=== PATIENT | male | born 1935 | race Caucasian/White ===

== ENCOUNTER → 2016-11-10 | Outpatient (CLI) | payer MEDICARE, BC | END | disposition home or self-care (01) | LOC: LABPAT 10:40 | PROVIDERS: ATTEND Orthopaedic Surgery | DX: Z01.812 Encounter for preprocedural laboratory examination (principal) | CPT/HCPCS: 87070 ==

== ENCOUNTER 2016-11-28 07:23 | Inpatient (IN) | payer MEDICARE, BC ==
[2016-11-21 15:09] VITALS: BMI 28.2
--- NOTE | 2016-11-27 10:05 | HP ---
DATE OF ADMISSION: CHIEF COMPLAINT: Left knee pain. HISTORY OF PRESENT ILLNESS: The patient is a 81-year-old retired male who presents with progressive left knee pain secondary to osteoarthrosis for the past several years. It has worsened recently. He has tried previous injections and medications with only partial temporary relief. He notes the pain does limit his normal function and activities. PAST MEDICAL HISTORY: Significant for diabetes and arthritis. PAST SURGICAL HISTORY: Significant for previous knee arthroscopy. CURRENT MEDICATIONS: None. He denies isabel drug allergies. FAMILY HISTORY: Significant for diabetes and heart disease. SOCIAL HISTORY: Negative for current tobacco or alcohol use. A 16-point review of systems otherwise reviewed and is noncontributory. On examination, the patient is approximately 5 foot 6, 170 pounds of mesomorphic habitus. HEENT exam is nonfocal. Neck is supple. He has painless passive motion of his left hip. Straight leg raise is negative. Active motion left knee -6 to 115 degrees of flexion. He has a large effusion. He is tender about the medial joint line. Collaterals are stable, Kam is negative, Carly's equivocal. He has genu varum alignment. His distal neurovascular exam appears be intact in the left lower extremity. Previous x-rays to include weight-bearing, notch, lateral, and merchant views of the left knee obtained in the office show severe medial and patellofemoral compartment narrowing. IMPRESSION: Left knee severe medial and patellofemoral compartment osteoarthrosis. RECOMMENDATIONS: I talked to the patient at length regarding his treatment options. He is quite symptomatic despite conservative measures. After thorough discussion, he opts to proceed with surgery. We will plan to proceed with left total knee arthroplasty. We will institute DVT prophylaxis postoperatively. Risks and benefits are discussed at length in layman's terms. Patient underwent preoperative medical evaluation by Dr. Velarde.
[~2016-11-28 07:23] MED LIST: ACETAMINOPHEN TAB 500 MG TAB PO ONE; HYDROmorphone 1 MG/ML 1 ML SYRINGE IVP PRN; MELOXICAM 7.5 MG TAB PO ONE; MIDAZOLAM 2 MG/2 ML VIAL IV PRN; ONDANSETRON 4 MG/2 ML VIAL IVP ONE; TRANEXAMIC ACID 1,000 MG in SODIUM CHLORIDE 0.9% 100 ML IVPB ONE; VANCOMYCIN 1,000 MG in SODIUM CHLORIDE 0.9% 250 ML IVPB ONE; ceFAZolin 2 GM in SODIUM CHLORIDE 0.9% 100 ML IVPB ONE
[2016-11-28] MEDS: LACTATED RINGERS 1,000 ML IV SCH (08:07)
[2016-11-28] MEDS ORDERED: LIDOCAINE 1% 20 ML VIAL (10MG/ML) FOR IV START INTRADERMA ONE (08:08)
[2016-11-28 08:15] LABS: Glucose,Whole Blood 119 mg/dL (75-99)
[2016-11-28] MEDS ORDERED: ROPIVACAINE 1,100 MG, SODIUM CHLORIDE 0.9% 330 ML MISCELLANE PRN ×2 (08:24)
[2016-11-28] MEDS ORDERED: MIDAZOLAM 2 MG/2 ML VIAL IVP ONE (09:04)
--- NOTE | 2016-11-28 09:21 | P.ONQ ---
Anesthesiology Proc Note - PNB - Peripheral Nerve Block Performed Left Adductor Canal Infusion Indication: Acute Post-Operative Pain, Dx/Pain Location (Left Knee) Specifically requested for management of pain by : Amaury Sandoval Sedation Type: Sedate with meaningful contact maintained Preparation: Sterile Dressing Position: Supine Catheter: Indwelling Needle Types: Other (see comment) (Pajunk) Needle Size: 100mm (4") Technique: Ultrasound Injectate: 0.5% Ropivacaine (see comment for volume) (30cc) Blood Aspirated: No Pain Paresthesia on Injection Noted: No Resistance on Injection: Normal Events: Uneventful and Well Tolerated
[2016-11-28] MEDS ORDERED: ROPIVACAINE 246.25 MG, EPINEPHrine 0.5 MG, KETOROLAC 30 MG, cloNIDine HCL/PF 80 MCG, WA... MISCELLANE ONE ×5 (09:45)
[2016-11-28] MEDS ORDERED: SODIUM CHLORIDE 0.9% 100 ML BAG ONE (10:36)
[2016-11-28] MEDS ORDERED: ePHEDrine 50 MG/ML 1 ML AMP ONE (10:36)
[2016-11-28] MEDS ORDERED: MIDAZOLAM 2 MG/2 ML VIAL ONE (10:36)
[2016-11-28] MEDS ORDERED: fentaNYL (PF) 50 MCG/ML 2 ML AMP ONE (10:36)
[2016-11-28] MEDS ORDERED: PROPOFOL 10 MG/ML 20 ML VIAL IV ONE (10:36)
[2016-11-28] MEDS ORDERED: TRANEXAMIC ACID 1,000 MG/10 ML VIAL ONE (10:36)
[2016-11-28] MEDS ORDERED: MAGNESIUM HYDROXIDE 2,400 MG/10 ML CUP PO PRN (12:20)
[2016-11-28] MEDS ORDERED: traMADol 50 MG TAB PO PRN (12:20)
[2016-11-28] MEDS ORDERED: NALOXONE 0.4 MG/ML 1 ML VIAL IV PRN (12:20)
[2016-11-28] MEDS ORDERED: ACETAMINOPHEN TAB 325 MG TAB PO PRN (12:20)
[2016-11-28] MEDS ORDERED: ONDANSETRON 4 MG/2 ML VIAL IVP PRN (12:20)
[2016-11-28] MEDS ORDERED: HYDROcodone/APAP 5-325MG 1 EACH TAB PO PRN (12:20)
[2016-11-28] MEDS ORDERED: HYDROmorphone 1 MG/ML 1 ML SYRINGE IVP PRN ×2 (12:20)
--- NOTE | 2016-11-28 12:24 | P.DS ---
Providers Date of admission: 11/28/16 07:23 Expected date of discharge: 11/30/16 Attending physician: Amaury Sandoval Consults: 11/28/16 12:20 Consult Physician Routine Consulting Provider: Justin Velarde Reason/Comments: medical management Do you want consulting provider notified?: Yes Primary care physician: Justin Velarde [facility] Course: Date of admission: 11/28/2016 Date of discharge: 11/30/2016 Admission diagnosis: Status post left total knee arthroplasty Discharge diagnosis: Same Attending physician: Dr. Sandoval Surgical procedures: Left total knee arthroplasty Brief history: Patient is a 81-year-old male with a history of progressive primary left hip osteoarthritis. At this point patient has failed conservative treatment measures and has opted to proceed with a elective left total hip arthroplasty. Hospital course: Details of patient's surgery can be found in operative report. Patient tolerated the procedure well and was subsequently transported to orthopedic floor. Patient's orthopeidc and medical care was provided daily. Patient had daily laboratory tests performed for evaluation of overall blood counts. Patient had daily physical therapy to include strengthening range of motion as well as education with walker ambulation. Patient had daily CPM usage as part of their physical therapy program. Patient was treated with Xarelto] for their postoperative DVT prophylaxis during their inpatient stay. Patient was noted to have a relatively uneventful postoperative course. Patient reported satisfactory pain control with oral pain medications by postoperative day 0. Patient showed satisfactory progress with physical therapy. Patient moved steadily through the program and had no difficulty meeting the goals by postoperative day 2. Given patient's otherwise satisfactory course and having met physical therapy goals, plan is to discharge patient [home] on postoperative day 2. Discharge condition/disposition: Patient will be discharged [home] in stable condition. Discharge medications: Instructions are given on resumption of patient's normal daily medications per primary care recommendation, in addition patient will be prescribed Liberty 5 mg/325 mg, tramadol 50 mg, Colace 100 mg, Pepcid 20 mg, Xarelto 10 mg. Discharge instructions: 1. Wound care and infection precautions, [keep incision dry and covered while showering], no lotions, creams, moisturizers. No soaking, tubs, pools, hottubs. Do not scrub over the incision. 2. Weight-bear [as tolerated] with walker / cane until follow-up. 3. Ice and elevate when necessary. Do not exceed 20 minutes per hour with ice pack. 4. Utilize compression sleeve until seen at first follow up appointment. 5. Visiting nursing care. 6. Home physical therapy [including home CPM]. 7. Pain meds and anticoagulants per prescription. 8. Pain medication has potential to cause constipation. Increase oral fluid and fiber intake. Contact primary care provider if you have not had a bowel movement within 48 hours after discharge 9. No anti-inflammatory medication until discussed at first post operative visit, this including Motrin, Aleve, Mobic, Diclofenac. 10. Follow up in office at 2 weeks postop with Adolph Leroy PA-C 11. Follow up with your primary care doctor 7-10 days after discharge. 12. Contact [facility] with any questions, . Procedures: Left total knee arthroplasty Patient Condition at Discharge: Good Plan - Discharge Summary New Discharge Prescriptions: New Rivaroxaban [Xarelto] 10 mg PO DAILY #12 tab Docusate [Colace] 100 mg PO DAILY #30 capsule Famotidine [Pepcid] 20 mg PO DAILY #30 tablet Hydrocodone/Acetaminophen [Liberty 5-325] 1 - 2 each PO Q6HR PRN #60 tab PRN Reason: Pain traMADol HCl [Ultram] 50 mg PO Q6H PRN #40 tab PRN Reason: Pain No Action metFORMIN HCL [Metformin HCl] 1,000 mg PO QAM metFORMIN HCL [Metformin HCl] 500 mg PO W/SUPPER Discharge Medication List metFORMIN HCL [Metformin HCl] 1,000 mg PO QAM 11/21/16 [History] metFORMIN HCL [Metformin HCl] 500 mg PO W/SUPPER 11/21/16 [History] Rivaroxaban [Xarelto] 10 mg PO DAILY #12 tab 11/28/16 [Rx] Docusate [Colace] 100 mg PO DAILY #30 capsule 11/30/16 [Rx] Famotidine [Pepcid] 20 mg PO DAILY #30 tablet 11/30/16 [Rx] Hydrocodone/Acetaminophen [Liberty 5-325] 1 - 2 each PO Q6HR PRN #60 tab 11/30/16 [Rx] traMADol HCl [Ultram] 50 mg PO Q6H PRN #40 tab 11/30/16 [Rx] Follow up Appointment(s)/Referral(s): [facility], [NON-STAFF] - As Needed David Leroy, PAC [PHYSICIAN INFORMATICA MDM DEVELOPER] - 2 Weeks Activity/Diet/Wound Care/Special Instructions: Orthopedic Discharge Instructions: 1. Wound care and infection precautions, keep incision dry and covered while showering, no lotions, creams, moisturizers. No soaking, pools, hot tubs. Do not scrub over incision. 2. Weight-bear as tolerated with walker / cane until follow-up. 3. Ice and elevate when necessary. Do not exceed 20 minutes per hour with ice pack. 4. Utilize compression sleeve until seen at first follow up appointment. 5. Visiting nursing care. 6. Home physical therapy including home CPM. 7. Pain meds and anticoagulants per prescription. 8. Pain medication has potential to cause constipation. Increase oral fluid and fiber intake. Contact primary care provider if you have not had a bowel movement within 48 hours after discharge. 9. No anti-inflammatory medication until discussed at first post operative visit, this including Motrin, Aleve, Mobic, Diclofenac. 10. Follow up in office at 2 weeks postop with Adolph Leroy PA-C 11. Follow up with your primary care doctor 7-10 days after discharge. 12. Contact [facility] with any questions, . Discharge Disposition: HOME WITH HOME HEALTH SERVICES
[2016-11-28] MEDS ORDERED: LACTATED RINGERS 1,000 ML IV ONE (12:35)
--- NOTE | 2016-11-28 12:58 | P.OP ---
Date of Procedure: 11/28/16 Preoperative Diagnosis: Left knee severe tricompartmental osteoarthrosis-primary Postoperative Diagnosis: Same Procedure(s) Performed: Left total knee arthroplasty/cemented/posterior stabilized Implants: Depuy Attune size 8 cemented femoral component, size 8 cemented tibial component , 9 mm articular surface, 32 mm cemented patellar component. This is a posterior stabilized implant. Anesthesia: regional, local, spinal Surgeon: Amaury Sandoval Oil Distributor Tender #1: David Leroy Estimated Blood Loss (ml): 50 Pathology: other (Bone fragments) Condition: stable Disposition: PACU Indications for Procedure: The patient is a 81-year-old male who presents with progressive left knee pain secondary to osteoarthrosis despite conservative measures. A discussion of the risks and benefits of operative intervention versus continued conservative measures was made with the patient. He opted to proceed with surgery. Operative risks to include infection, neurovascular injury, development of blood clots, possible component loosening, possible component failure need for subsequent procedures was discussed. Informed consent was obtained. Operative Findings: As below Description of Procedure: The patient was brought to the operating room, and after induction of spinal anesthesia the left lower extremity was prepped and draped in normal fashion. The tourniquet was inflated to 270 mmHg. A longitudinal incision extending 3 finger breaths above the superior pole of the patella extending to the medial aspect of the tibial tubercle was then made. The skin and subcutaneous tissues were divided sharply. A medial parapatellar arthrotomy was performed. The medial soft tissues to include the superficial deep portions the medial collateral ligament as well as the medial hamstring tendons were elevated subperiosteally. I also released the posterior medial capsule. The medial proximal tibial and distal femoral osteophytes were carefully removed. The patella was everted. A portion of the retropatellar fat pad was excised sharply. The anterior cruciate ligament had previously ruptured. A starting hole was made in the distal femur 1 cm anterior to the posterior cruciate ligament origin. An intramedullary femoral guide was gently inserted planning on 5 valgus distal cut with 9 mm distal resection. The cutting block was pinned in place. The distal cut was then aid. The posterior referencing sizing guide was utilized. A felt size 8 was most appropriate. 3 of external rotation was built into the system and verified off the trans-epicondylar axis and the posterior condyles. The cutting block was pinned in place. The anterior, posterior, and chamfer cuts were then made. The bone fragments were removed. The notch cut was then made utilizing the guide with the reciprocating saw. The bone fragment was removed. The trial size 8 femoral components placed and was fully seated. There is good anterior to posterior medial to lateral fit. The distal peg holes were drilled. The trial component was then removed. Attention was then paid towards preparing the proximal tibia. An extra medullary guide with 0 posterior slope cutting block was utilized in line with the tibial shaft and second metatarsal distally. I planned on 2 mm resection from the medial compartment. The cutting block was pinned in place. The posterior tissues were protected with a retractor. The proximal tibial cut was made in the bone removed in one fragment. The tibia sized most appropriate size aid. The remnants of the medial and lateral menisci were excised the capsule junction with electrocautery. The trial femoral and tibial components were placed along with a 9 mm articular surface. I was able to obtain full flexion and extension with good stability with varus and valgus stress. After several flexion and extension cycles, the tibial rotation was marked with electrocautery in line with the medial one third of the tibial tubercle. Attention was then paid towards preparing the patella. A patella reamer was utilized taking this down to 14 mm of bone stock. A good flush cut was made. The patella sized most appropriately at 32 mm. The peg holes were drilled. All component was placed per the knee was taken through range of motion. I had good patellofemoral tracking with no hands technique. The trial components were then removed. The posterior osteophytes of the distal femur were carefully removed with a curved osteotome. The tibia was prepared in the appropriate rotation with appropriate drill and keel punch. I made several additional drill holes in the proximal medial tibia to facilitate cement interdigitation. The bony surfaces were prepared with pulsatile lavage and dried. The flexion and extension gaps were checked and felt to be symmetric. The posterior soft tissues were injected with ropivacaine. The tibial component was then cemented in placed and was fully seated. Excess cement was removed. The femoral component cemented in placed and was fully seated. Excess cement was removed. The trial 9 mm articular surface was placed and the knee was put in full extension. The patella component was cemented placed and was fully seated. After the cement had sufficiently hardened, the knee was again taken through range of motion. Again I was able to obtain full flexion and extension with good stability with varus and valgus stress. The trial articular surface was removed and the final 9 mm articular surface was placed. This was fully seated. Care was taken to avoid any soft tissue interposition. Pulsatile lavage was again utilized. The medial parapatellar arthrotomy was closed with #2 Ethibond suture. The tourniquet was deflated with less than 70 minutes total tourniquet time. The subcutaneous tissues were reapproximated with interrupted 2-0 Vicryl sutures. The skin was reprepped with 3-0 subcuticular strata fix suture. Skin tape and adhesive was applied. A sterile dressing was applied. The patient was then awoken from sedation and transferred to recovery room in good condition. Blood loss was estimated at 50 mL. No complications were incurred. Sponge and needle counts were correct at the end the case.
[2016-11-28 13:05] LABS: Glucose,Whole Blood 111 mg/dL (75-99)
--- NOTE | 2016-11-28 13:15 | XR ---
Left knee HISTORY: Status post left knee arthroplasty 2 views of the left knee, no comparisons Patient is status post left knee arthroplasty. There is a drain in place. Suprapatellar increased den sity compatible with joint effusion. Questionable lucency in the medial proximal tibial metaphysis ma y be a postoperative finding, correlate. There is anatomic alignment. Small ossific densities are pre sent medial to the medial malleolus. Ossific densities are also projecting posteriorly to the proxima l tibia and fibula. IMPRESSION: Postop findings. Suspect there may be a spacing device the level of the proximal metaphys is of the left tibia. Possible loose bodies as described.
[2016-11-28] MEDS: ceFAZolin 2 GM in SODIUM CHLORIDE 0.9% 100 ML IVPB SCH (14:55)
[2016-11-28 16:59] LABS: Glucose,Whole Blood 109 mg/dL (75-99)
[2016-11-28] MEDS: INSULIN LISPRO (humaLOG) 300 UNIT/3 ML VIAL SQ SCH ×2 (18:09→21:35)
[2016-11-28 20:31] LABS: Glucose,Whole Blood 188 mg/dL (75-99)
[2016-11-28] MEDS: SENNOSIDES-DOCUSATE SODIUM 1 EACH TAB PO SCH (21:34)
[2016-11-29] MEDS: ceFAZolin 2 GM in SODIUM CHLORIDE 0.9% 100 ML IVPB SCH (00:53)
--- NOTE | 2016-11-29 05:34 | CONS ---
DATE OF CONSULTATION: 11/28/2016 REASON FOR CONSULTATION: Medical management requested by Dr. Sandoval. CONSULTATION: This is a pleasant 81-year-old patient of Dr. Velarde. His chronic stable medical conditions include diabetes, osteoarthritis in other joints. He has undergone a left total knee arthroplasty. Patient's pain is controlled. No nausea or vomiting. No chest pain or shortness of breath. Denies any cardiac history. Patient is also hard of hearing. REVIEW OF SYSTEMS: CONSTITUTIONAL: None. HEENT: None. RESPIRATORY: None. CARDIOVASCULAR: None. GASTROINTESTINAL: None. GENITOURINARY: None. MUSCULOSKELETAL: Arthritic pain especially in the hands and knees. DERMATOLOGIC: None. HEMATOLOGIC: None. LYMPHATIC: None. PSYCHIATRY: None. NEUROLOGICAL: Decreased hearing. PAST MEDICAL HISTORY: Diabetes, osteoarthritis. PAST SURGICAL HISTORY: Adenoidectomy, appendectomy, orthopedic surgery, tonsillectomy. SOCIAL HISTORY: No smoking. No alcohol. Patient is retired from heavy equipment. . FAMILY HISTORY: Reviewed, noncontributory to presentation. ( ) metformin 1000 mg in the morning, 500 mg at supper, Xarelto for prophylaxis. ALLERGIES: None. On examination, temperature 97.6, pulse 62, respirations 16, blood pressure 123/70, pulse ox 94% on 2 L. GENERAL APPEARANCE: Average built, lying in bed, not in distress. EYES: Pupils equal. Conjunctivae normal. HEENT: External appearance of the nose and ears normal. Oral cavity normal. Decreased hearing. NECK: JVD not raised. Mass not palpable. RESPIRATORY: Effort normal. LUNGS: Fair air entry. CARDIOVASCULAR: First and second sounds normal. No edema. ABDOMEN: Soft, nontender. Liver and spleen not palpable. LYMPHATIC: No lymph node palpable in neck or axillae. PSYCHIATRY: Alert and oriented x3. Mood is normal. NEUROLOGICAL: Pupils equal. Cranial nerves grossly intact. Power and sensation grossly intact. EXTREMITIES: Left knee in a dressing. INVESTIGATIONS: Accu-Cheks noted. ASSESSMENT: 1. Left total knee arthroplasty. 2. Diabetes mellitus, type 2 on oral hypoglycemic. 3. Primary osteoarthritis of the knees and hands. PLAN: Metformin will be resumed. Wanted to start the patient on Zestril and Lipitor because of ( ) . At this point, patient is not keen for that. I did tell him to follow with Dr. Velarde and discussed the same with him. For DVT prophylaxis, the patient is on Xarelto. Pain cover is in place. Care was discussed with the patient. Thank you, Dr. Sandoval.
[2016-11-29 06:53] LABS: Glucose,Whole Blood 115 mg/dL (75-99)
[2016-11-29 07:21] LABS: Basophils % (A) 0 %; CH 30.5; CHCM 33.8; Eosinophils # (A) 0.2 k/uL (0-0.7); Eosinophils % (A) 3 %; HCT 36.3 % (39.0-53.0); HDW 2.55; HGB 12.2 gm/dL (13.0-17.5); Luc # (Auto) 0.13; Luc % (Auto) 2; Lymphocytes # (A) 1.2 k/uL (1.0-4.8); Lymphocytes % (A) 17 %; MCH 30.4 pg (25.0-35.0); MCHC 33.6 g/dL (31.0-37.0); MCV 90.4 fL (80.0-100.0); Mean Platelet Volume 8.4; Monocytes # (A) 0.3 k/uL (0-1.0); Monocytes % (A) 5 %; Neutrophils % (A) 73 %; RBC 4.02 m/uL (4.30-5.90); RDW 12.5 % (11.5-15.5); WBC 6.9 k/uL (3.8-10.6); WBC (Perox) 7.01
[2016-11-29] MEDS: INSULIN LISPRO (humaLOG) 300 UNIT/3 ML VIAL SQ SCH ×3 (07:29→18:48)
[2016-11-29] MEDS: FAMOTIDINE 20 MG TAB PO SCH (07:31)
[2016-11-29] MEDS: RIVAROXABAN 10 MG TAB PO SCH (07:31)
[2016-11-29] MEDS: HYDROcodone/APAP 5-325MG 1 EACH TAB PO PRN ×3 (07:32→18:44)
[2016-11-29] MEDS: LACTATED RINGERS 1,000 ML IV SCH (09:01)
--- NOTE | 2016-11-29 11:27 | P.PN ---
Subjective Principal diagnosis: Status post left total knee arthroplasty Patient is seen today resting in his hospital chair, he appears to be in no acute distress. Patient's ambulated with therapy. He denies any chest pain, shortness of breath, fever or chills, headaches/lightheadedness. Objective - Vital Signs Vital signs: Vital Signs Temp 97 F L 11/29/16 07:00 Pulse 68 11/29/16 07:00 Resp 16 11/29/16 07:00 BP 112/63 11/29/16 07:00 Pulse Ox 98 11/29/16 07:00 Intake & Output 11/28/16 11/29/16 11/29/16 18:59 06:59 18:59 Intake Total 1450 740 240 Output Total 475 1340 2200 Balance 975 600 -1960 Intake: IV 1450 Intake, IV Titration 540 Amount Lactated Ringers 1,000 ml 440 @ 40 mls/hr IV .Q24H YECENIA Rx#:[id number] ceFAZolin 2 gm In Sodium 100 Chloride 0.9% 100 ml @ 100 mls/hr IVPB Q8HR YECENIA Rx#:[id number] Oral 200 240 Output: Drainage 340 Left Knee 340 Urine 425 1000 2200 Uretheral (Perdue) 1000 2200 Estimated Blood Loss 50 Other: Voiding Method Indwelling Catheter Indwelling Catheter Indwelling Catheter - Exam Left lower extremity: Incision is clean, dry and intact. Minimal soft tissue swelling present around the knee. Calf is soft, no tenderness with palpation. Plantar flexion, dorsiflexion, EHL, FHL are intact. Sensory exam to light touch throughout extremities intact. Capillary refills less than 2 seconds. - Labs CBC & Chem 7: 11/29/16 06:44 Labs: Abnormal Lab Results - Last 24 Hours (Table) 11/28/16 11/28/16 11/28/16 Range/Units 13:03 16:50 20:26 RBC (4.30-5.90) m/uL Hgb (13.0-17.5) gm/dL Hct (39.0-53.0) % Plt Count (150-450) k/uL POC Glucose (mg/dL) 111 H 109 H 188 H (75-99) mg/dL 11/29/16 11/29/16 Range/Units 06:44 06:48 RBC 4.02 L (4.30-5.90) m/uL Hgb 12.2 L (13.0-17.5) gm/dL Hct 36.3 L (39.0-53.0) % Plt Count 145 L (150-450) k/uL POC Glucose (mg/dL) 115 H (75-99) mg/dL Assessment and Plan Plan: Assessment: 1. Postop day #1 status post left total knee arthroplasty Plan: 1. Pain control, continue supportive oral medication 2. Daily dressing changes/ice and elevate 3. Continue physical therapy and use of CPM machine 4. Encourage incentive spirometer 5. GI and DVT prophylaxis, continue Xarelto 10 mg 6. Medical recommendations 7. Discharge planning: Patient will be likely discharged home tomorrow Time with Patient: Less than 30
[2016-11-29 11:42] LABS: Hemoglobin A1C 7.8 % (4.2-6.1)
[2016-11-29 12:06] LABS: Glucose,Whole Blood 166 mg/dL (75-99)
[2016-11-29 17:17] LABS: Glucose,Whole Blood 151 mg/dL (75-99)
[2016-11-29] MEDS ORDERED: metFORMIN 500 MG TAB PO SCH (17:30)
--- NOTE | 2016-11-29 18:29 | P.PN ---
Progress Note - Text The patient is status post left adductor canal catheter placement. The catheter was placed for postoperative pain control, status post total left arthroplasty. Ropivacaine 0.2% is infusing at 8 mLs per hour. The patient has no complaints of left lower extremity numbness or weakness. Patient's VAS score is 3 -10. Assessment: Patient's adductor canal catheter is in place and working appropriately. Plan: continue infusion and adjust it as needed.
[2016-11-29 20:40] VITALS: RESP 16
[2016-11-29 21:15] LABS: Glucose,Whole Blood 144 mg/dL (75-99)
[2016-11-29] MEDS: SENNOSIDES-DOCUSATE SODIUM 1 EACH TAB PO SCH (21:48)
[2016-11-30] MEDS: INSULIN LISPRO (humaLOG) 300 UNIT/3 ML VIAL SQ SCH ×3 (00:09→13:52)
[2016-11-30] MEDS: HYDROcodone/APAP 5-325MG 1 EACH TAB PO PRN ×3 (01:13→13:51)
[2016-11-30 02:12] VITALS: TEMP 97.7
[2016-11-30 06:57] LABS: Glucose,Whole Blood 125 mg/dL (75-99)
[2016-11-30] MEDS: LACTATED RINGERS 1,000 ML IV SCH (07:14)
--- NOTE | 2016-11-30 07:14 | PN ---
DATE OF SERVICE: 11/29/2016 PRESENTING COMPLAINT: Left knee arthroplasty. INTERVAL HISTORY: Patient is status post left knee arthroplasty, doing well. No chest pain or short of breath. Did work with physical therapy to eat his breakfast. Review of systems done for constitutional, cardiovascular, GI, pulmonary, musculoskeletal; relevant findings as above. Current medications are reviewed. On examination, temperature 97, pulse 58, respirations 16, blood pressure 112/63, pulse ox 98% on room air. GENERAL APPEARANCE: Sitting up, comfortable. EYES: Pupils equal, conjunctivae normal. NECK: JVD not raised. Mass not palpable. RESPIRATORY: Effort normal. LUNGS: Fair air entry. CARDIOVASCULAR: First and second sounds normal. No edema. ABDOMEN: Soft, nontender. Liver and spleen not palpable. PSYCHIATRY: Alert and oriented x3. Mood and affect normal. INVESTIGATIONS: White count 6.9, hemoglobin 12.2. Accu-Cheks noted. ASSESSMENT: 1. Left total knee arthroplasty. 2. Diabetes mellitus type 2 on oral hypoglycemic. 3. Primary osteoarthritis of both knees and hands. . PLAN: Patient reminded that he should see Dr. Velarde and check about a small dose of INDIRA inhibitor, Lipitor for renal productive. Otherwise, patient did well.
[2016-11-30 08:04] VITALS: BP 145/70; PULSE 77
[2016-11-30] MEDS: RIVAROXABAN 10 MG TAB PO SCH (08:53)
[2016-11-30] MEDS: FAMOTIDINE 20 MG TAB PO SCH (08:53)
[2016-11-30] MEDS ORDERED: metFORMIN 500 MG TAB PO SCH (09:00)
--- NOTE | 2016-11-30 09:20 | P.PN ---
Subjective Principal diagnosis: Status post left total knee arthroplasty Patient is seen today resting in his hospital chair, he appears to be in no acute distress. Patient's ambulated with therapy. He denies any chest pain, shortness of breath, fever or chills, headaches/lightheadedness. Objective - Vital Signs Vital signs: Vital Signs Temp 97.7 F 11/30/16 07:00 Pulse 77 11/30/16 07:00 Resp 16 11/30/16 07:00 BP 145/70 11/30/16 07:00 Pulse Ox 94 L 11/30/16 07:00 Intake & Output 11/29/16 11/30/16 11/30/16 18:59 06:59 18:59 Intake Total 420 Output Total 2350 Balance -1930 Intake: Oral 420 Output: Urine 2350 Uretheral (Perdue) 2200 Other: Voiding Method Indwelling Catheter # Voids 2 - Exam Left lower extremity: Incision is clean, dry and intact. Minimal soft tissue swelling present around the knee. Calf is soft, no tenderness with palpation. Plantar flexion, dorsiflexion, EHL, FHL are intact. Sensory exam to light touch throughout extremities intact. Capillary refills less than 2 seconds. - Labs CBC & Chem 7: 11/29/16 06:44 Labs: Abnormal Lab Results - Last 24 Hours (Table) 11/29/16 11/29/16 11/29/16 Range/Units 06:44 12:03 17:03 POC Glucose (mg/dL) 166 H 151 H (75-99) mg/dL Hemoglobin A1c 7.8 H (4.2-6.1) % 11/29/16 11/30/16 Range/Units 21:13 06:49 POC Glucose (mg/dL) 144 H 125 H (75-99) mg/dL Hemoglobin A1c (4.2-6.1) % Assessment and Plan Plan: Assessment: 1. Postop day #2 status post left total knee arthroplasty Plan: 1. Pain control, continue supportive oral medication 2. Daily dressing changes/ice and elevate 3. Continue physical therapy and use of CPM machine 4. Encourage incentive spirometer 5. GI and DVT prophylaxis, continue Xarelto 10 mg 6. Medical recommendations 7. Discharge planning: Patient will be discharged home today
--- NOTE | 2016-11-30 11:09 | P.PN ---
Progress Note - Text The patient is status post left adductor canal catheter placement. The catheter was placed for postoperative pain control, status post total left arthroplasty. Ropivacaine 0.2% is infusing at 8 mLs per hour. The patient has no complaints of left lower extremity numbness or weakness. Patient's VAS score is 2-10. Assessment: Patient's adductor canal catheter is in place and working appropriately. Plan: continue infusion and adjust it as needed.
[2016-11-30 12:06] LABS: Glucose,Whole Blood 151 mg/dL (75-99)
--- NOTE | 2016-12-01 22:19 | PN ---
DATE OF SERVICE: 12/01/2016 PRESENTING COMPLAINT: Left knee arthroplasty. INTERVAL HISTORY: Patient is status post left knee surgery some the patient on 11/30/2016. No new issues. Working with therapy. Tolerating his meals. Been out of bed. Review of systems done for constitutional, cardiovascular, GI, pulmonary findings as above. Current medications are reviewed. On examination, temperature 97.7, pulse 77, respiration 16, blood pressure 140/70, pulse ox 94% on room air. GENERAL APPEARANCE: Sitting up, comfortable. EYES: Pupils equal. Conjunctivae normal. NECK: JVD not raised. Mass not palpable. RESPIRATORY: Effort normal. Lungs are clear. CARDIOVASCULAR: First and second sounds normal. No edema. ABDOMEN: Soft, nontender. Liver and spleen not palpable. Psych: Alert and oriented times threes. Mood and affect normal. INVESTIGATIONS: Accu-Cheks are noted. ASSESSMENT: 1. Left total knee arthroplasty. 2. Diabetes mellitus type 2, on oral hypoglycemic. 3. Primary osteoarthritis in both hands and knees. PLAN: Stable. Continue current medication and treatment plan. Should follow with primary care physician on discharge.
== END 2016-11-30 16:57 | disposition home health service (06) | DRG 470 ==
LOC: 2ORMAIN 07:23 → 3SUR 12:46
PROVIDERS: ADMIT Orthopaedic Surgery; ATTEND Orthopaedic Surgery
PROC: 0SRD0J9 Replacement of Left Knee Joint with Synthetic Substitute, Cemented, Open Approach (ICD-10-PCS; principal; 2016-11-28 10:35)
DX: M17.0 Bilateral primary osteoarthritis of knee (principal); E11.9 Type 2 diabetes mellitus without complications; M16.12 Unilateral primary osteoarthritis, left hip; H91.90 Unspecified hearing loss, unspecified ear; M19.041 Primary osteoarthritis, right hand; M19.042 Primary osteoarthritis, left hand; M21.162 Varus deformity, not elsewhere classified, left knee; Z79.84 Long term (current) use of oral hypoglycemic drugs; Z79.899 Other long term (current) drug therapy
CPT/HCPCS: 83036; 85025; 88300